=== PATIENT | male | born 1965 | race American Indian/Alaskan Native ===

== ENCOUNTER 2019-03-03 20:41 | Emergency (ER) | payer OTHER ==
[~2019-03-03] VITALS: Ht 182.9 cm; Wt 92.0 kg
[2019-03-03] MEDS ORDERED: CEPH500C5 PO (21:58)
[2019-03-03] MEDS ORDERED: SULF1TAB49 PO (21:58)
[2019-03-03] MEDS ORDERED: cephalexin 250mg capsule PO ONE (22:05)
[2019-03-03] MEDS ORDERED: sulfamethoxazole/trimethoprim DS (800/160mg) tablet PO ONE (22:05)
[2019-03-03 22:22] VITALS: BP 157/103
== END 2019-03-03 22:23 | disposition home or self-care (01) ==
LOC: ER 20:42
DX: L02.512 Cutaneous abscess of left hand (principal); L03.012 Cellulitis of left finger; Z79.2 Long term (current) use of antibiotics; Z79.899 Other long term (current) drug therapy
CPT/HCPCS: 26010; 93005; 99284